=== PATIENT | male | born 1945 | race Caucasian/White ===

== ENCOUNTER 2016-12-01 16:29 | Emergency (ER) | payer MEDICARE, BC ==
--- NOTE | ~2016-12-01 | ER ---
PATIENT'S NAME: KRISTOPHER MARSHALL [facility] AGE: 71 Y [address] ROOM: [place] [address] LOCATION: [facility] ADMIT DATE: 12/01/2016 ER/Outpatient Report DISCHARGE DATE: 12/01/2016 FAMILY PHYSICIAN: Ricardo Fernandez MD ATTENDING PHYSICIAN: Ramy Clarke CHIEF COMPLAINT: Chest pain and shortness of breath. HISTORY OF PRESENT ILLNESS: [facility] by Dr. Hay. His workup there was notable for an elevated D-dimer and wide mediastinum. He was sent here for further evaluation. Of note, Mr. Marshall has had pain since Friday. It has not gone away since its onset. It is described as pressure in the middle of the chest. It does not really radiate, and there was no back pain with it. It does get worse with deep breath. The pain was onset at work. He has traveled over 12 hours in a vehicle in the last 48 hours. No prior clotting history. He is on a statin medication but denies history of high blood pressure or diabetes. He does have some history of issues with lungs and a family history of heart disease. History of stone. PAST MEDICAL HISTORY: Documented on the record and reviewed by me. SOCIAL HISTORY: Documented on the record and reviewed by me. MEDICATIONS: Documented on the record and reviewed by me. ALLERGIES: DOCUMENTED ON THE RECORD AND REVIEWED BY ME. REVIEW OF SYSTEMS: All systems reviewed and negative except as noted in the HPI. PHYSICAL EXAMINATION: VITAL SIGNS: Blood pressure 142/84, pulse 86, respiratory rate 20, temperature 97.5, and SpO2 is 95% on room air. Pain is rated at 1.5/10. GENERAL: Age-appropriate male, recumbent on exam table, in no apparent pain or distress. NEUROLOGIC: Awake and alert. GCS 15. No focal deficits. No asymmetry. HEENT: Normocephalic and atraumatic. Eyes are PERRL. Oropharynx is clear. NECK: Supple. Trachea is midline. CHEST/HEART: Regular rate and rhythm with no murmurs. PATIENT'S NAME: KRISTOPHER MARSHALL [facility] AGE: 71 Y [address] ROOM: [place] [address] LOCATION: [facility] ADMIT DATE: 12/01/2016 ER/Outpatient Report DISCHARGE DATE: 12/01/2016 FAMILY PHYSICIAN: Ricardo Fernandez MD ATTENDING PHYSICIAN: Ramy Clarke LUNGS: Clear to auscultation bilaterally. No rhonchi, wheezes, or rales. ABDOMEN: Soft, nontender, nondistended. BACK: Normal to inspection and palpation. No spinal tenderness. No CVA tenderness. EXTREMITIES: Warm, well formed, well perfused. No tenderness or edema. SKIN: Clean, dry, intact. No rashes. LABORATORY DATA AND X-RAYS: Labs from prior to arrival were reviewed. Repeat cardiac enzymes were within normal limits. EKG was obtained with no acute ischemia, unchanged from EKG from [facility]. CMS and CBC with no actionable results. Chest CT with contrast does not reveal any pulmonary embolism or other obvious abnormality acutely. There is some hilar adenopathy, which needs to be addressed according to Radiology. IMPRESSION: 1. Chest pain. 2. Incidental hilar adenopathy. EMERGENCY DEPARTMENT COURSE: The patient was seen and evaluated at bedside. Based on labs and history, negative EKG and enzymes at this point in time rule out ACS. Chest CT excludes DVT not consistent with aortic aneurysm or dissection though this was not optimal study. History also indicates those are less likely. The patient is otherwise feeling well at this time though not asymptomatic. Discussed overall case with Dr. Hay, and we will have him, the patient, followup with Dr. Fernandez on Friday or Friday and return immediately if worse. All questions were answered. The patient was discharged to the care of his family in good condition. RAMY CLARKE MD JH/modl /[id number] d: 12/02/16 0635 t: 12/11/16 1046, OUTPATIENT REPORT
[2016-12-01 16:48] LABS: BASOPHIL % 0.4 %; EOSINOPHIL # 0.3 K/uL (0.0-0.5); EOSINOPHIL % 3.1 %; HEMOGLOBIN 15.6 g/dL (11.0-16.0); IMMATURE GRANULOCYTE % 0.2 %; LYMPHOCYTE # 1.5 K/uL (0.8-4.0); LYMPHOCYTE % 17.1 %; MCH 29.8 pg (27.0-34.0); MCHC 33.9 gm/dL (32.0-36.5); MONOCYTE # 1.1 K/uL (0.0-1.0); MONOCYTE % 11.7 %; MPV 10.8 fl (9.4-12.4); NEUTROPHIL # (ANC) 6.1 K/uL (1.4-9.0); NEUTROPHIL % 67.5 %; NRBC % 0 /100WBC (0-0.00); PLATELET COUNT 192 K/uL (150-450); RBC 5.23 M/uL (3.50-5.50); RDW-CV 12.6 % (11.9-14.6)
[2016-12-01 16:58] LABS: INR - (THERAPEUTIC) 0.99 (0.92-1.07); PROTIME 10.4 SECONDS (9.8-11.4); PTT 28 SECONDS (25-32)
[2016-12-01 17:07] LABS: ALBUMIN 3.2 gm/dL (3.5-5.0); ALK PHOS 85 IU/L (33-138); ALT 20 IU/L (12-78); ANION GAP 8.8 (10.0-19.0); AST 16 IU/L (10-40); BLOOD UREA NITROGEN 19 mg/dL (6-24); CALCIUM 8.4 mg/dL (8.5-10.5); CHLORIDE 109 mMol/L (96-110); CO2 28 mMol/L (22-32); CPK 49 IU/L (35-332); MAGNESIUM 2.1 mg/dL (1.8-2.6); POTASSIUM 3.8 mMol/L (3.7-5.1); SODIUM 142 mMol/L (135-145); TOTAL BILIRUBIN 0.6 mg/dL (0.0-1.5); TOTAL PROTEIN 6.8 g/dL (6.0-8.4)
== END 2016-12-01 17:51 | disposition disaster alternative care site (69) ==
LOC: GMED 16:29
PROVIDERS: Emergency Medicine
DX: R07.9 Chest pain, unspecified (principal); R59.0 Localized enlarged lymph nodes; Z88.5 Allergy status to narcotic agent; Z79.899 Other long term (current) drug therapy
CPT/HCPCS: Q9967